=== PATIENT | male | born 1955 | race Caucasian/White ===

== ENCOUNTER 2020-11-05 11:50 | Emergency (ER) | payer OTHER ==
[2020-11-05 16:01] LABS: BASOPHIL 0.6 % (0-2); EOSINOPHIL 3.5 % (0-7); HCT 50.8 % (42.0-52.0); HGB 16.5 g/dl (13.2-18.0); LYMPHOCYTE 20.2 % (15-48); MCH 28.9 pg (25.0-31.0); MCHC 32.5 g/dL (32.0-36.0); MONOCYTE 6.4 % (0-12); MPV 9.6 fL (6.0-9.5); NEUTROPHIL 69.1 % (41-80); NRBC 0; PLT 352 K/uL (150-400); RBC 5.71 M/uL (4.70-6.00); RDW 13.4 % (11.5-14.0)
[2020-11-05 16:15] LABS: ALBUMIN 3.9 g/dL (3.4-5.0); BILIRUBIN - TOTAL 0.4 mg/dL (0.2-1.0); BUN/CREAT RATIO (CALC) 15.9 RATIO; CREATININE 1.07 mg/dL (0.67-1.17); GLOBULIN (CALCULATION) 4.1 g/dL; POTASSIUM 4.4 mmol/L (3.5-5.1)
[2020-11-05] MEDS ORDERED: CLEOCIN HCL300 MG PO (17:21)
== END 2020-11-05 17:55 | disposition home or self-care (01) ==
LOC: FER 11:50
PROVIDERS: Emergency Medicine
DX: L03.114 Cellulitis of left upper limb (principal); J44.9 Chronic obstructive pulmonary disease, unspecified; F17.210 Nicotine dependence, cigarettes, uncomplicated
CPT/HCPCS: 36415; 80053; 85025; J0690

== ENCOUNTER 2021-04-03 16:55 | Emergency (ER) | payer OTHER ==
[~2021-04-03 16:55] MED LIST: CLEOCIN HCL300 MG PO
[2021-04-03 17:27] LABS: BASOPHIL 0.3 % (0-2); EOSINOPHIL 1.5 % (0-7); HCT 51.4 % (42.0-52.0); HGB 16.3 g/dl (13.2-18.0); LYMPHOCYTE 11.5 % (15-48); MCH 28.2 pg (25.0-31.0); MCHC 31.7 g/dL (32.0-36.0); MCV 88.9 fL (78.0-100.0); MONOCYTE 6.2 % (0-12); MPV 9.6 fL (6.0-9.5); NEUTROPHIL 80.1 % (41-80); NRBC 0; PLT 361 K/uL (150-400); RBC 5.78 M/uL (4.70-6.00); RDW 13.9 % (11.5-14.0); WBC 17.5 K/uL (4.0-10.5)
[2021-04-03 17:55] LABS: ALBUMIN 3.6 g/dL (3.4-5.0); BILIRUBIN - TOTAL 0.3 mg/dL (0.2-1.0); BUN/CREAT RATIO (CALC) 15.1 RATIO; CREATININE 1.06 mg/dL (0.67-1.17); GLOBULIN (CALCULATION) 3.9 g/dL; POTASSIUM 4.1 mmol/L (3.5-5.1); TOTAL PROTEIN 7.5 g/dL (6.4-8.2)
[2021-04-03 19:42] LABS: BILIRUBIN NEGATIVE (NEGATIVE); BLOOD NEGATIVE Ery/uL (NEGATIVE); CLARITY CLEAR (CLEAR); COLOR YELLOW (YELLOW); GLUCOSE (U) NORMAL (NORMAL); LEUKOCYTES NEGATIVE Leu/uL (NEGATIVE); NITRITE NEGATIVE (NEGATIVE); PROTEIN NEGATIVE (NEGATIVE); UROBILINOGEN 0.2 mg/dL (0.2-1.0); pH 6.5 (5.0-9.0)
[2021-04-03] MEDS ORDERED: NORCO 5-325 TA1 EACH PO (19:53)
[2021-04-03] MEDS ORDERED: ZOFRAN4 M1 PO (19:53)
[2021-04-03] MEDS ORDERED: CIPRO500 MG PO (19:53)
[2021-04-03] MEDS ORDERED: METRONIDAZOLE500 MG PO (19:53)
[2021-04-03 20:15] LABS: LACTIC ACID 0.3 mmol/L (0.4-1.9)
== END 2021-04-03 20:31 | disposition home or self-care (01) ==
LOC: FER 16:55
PROVIDERS: Nurse Practitioner Family
DX: K57.32 Diverticulitis of large intestine without perforation or abscess without bleeding (principal); E11.9 Type 2 diabetes mellitus without complications; J44.9 Chronic obstructive pulmonary disease, unspecified; F17.210 Nicotine dependence, cigarettes, uncomplicated; Z79.84 Long term (current) use of oral hypoglycemic drugs
CPT/HCPCS: 36415; 80053; 81003; 82150; 82728; 83605; 83690; 84145; 85025; 87040; J2270; J2405; J2543; J7030; Q9967